=== PATIENT | male | born 2000 | race Caucasian/White ===

== ENCOUNTER 2023-04-12 15:03 | Emergency (ER) | payer SELFPAY ==
[~2023-04-12] VITALS: Ht 188 cm; Wt 115.9 kg
[2023-04-12 16:01] VITALS: BP 130/78; PULSE 78; TEMP 98.3
== END 2023-04-12 16:01 | disposition home or self-care (01) ==
LOC: COL.ER 15:03
DX: S93.602A Unspecified sprain of left foot, initial encounter (principal); Z28.310 Unvaccinated for COVID-19; X50.1XXA Overexertion from prolonged static or awkward postures, initial encounter; W18.30XA Fall on same level, unspecified, initial encounter; Y93.67 Activity, basketball